=== PATIENT | female | born 1950 | race Caucasian/White ===

== ENCOUNTER 2016-09-16 10:10 | Inpatient (IN) | payer OTHER ==
[2016-08-15 14:59] VITALS: BMI 29.0
--- NOTE | 2016-08-15 15:37 | PAT Medication Instructions ---
Service Date Aug 15, 2016. Current Home Medication List Aspirin (Aspirin Ec), 81 MG PO QAM Calcium Carbonate-Vitamin D (Calcium), 1 TAB PO BID Diclofenac (Voltaren), 50 MG PO BID Duloxetine HCl (Cymbalta), 1 CAP PO HS Lorazepam (Ativan), 0.5 MG PO PRN Naproxen (Aleve), 440 MG PO PRN Omeprazole (Prilosec), 20 MG PO PRN Medication Instructions For Your Scheduled Surgery - Check with surgeon for instructions: Diclofenac (Voltaren), 50 MG PO BID Naproxen (Aleve), 440 MG PO PRN - Hold the following medications the morning of surgery: Calcium Carbonate-Vitamin D (Calcium), 1 TAB PO BID - Take the following medications the morning of surgery with a sip of water: Omeprazole (Prilosec), 20 MG PO PRN Lorazepam (Ativan), 0.5 MG PO PRN Aspirin (Aspirin Ec), 81 MG PO QAM (okay to continue per surgeon) - Take the following medications as scheduled the night before surgery: Calcium Carbonate-Vitamin D (Calcium), 1 TAB PO BID Lorazepam (Ativan), 0.5 MG PO PRN Duloxetine HCl (Cymbalta), 1 CAP PO HS If you have any questions please call us at [phone] (Jyoti Reagan PA-C ) or [phone] or [phone]
[2016-08-15 16:04] LABS: BASO % 0.4 %; BASO ABS # 0.03 K/uL (0-0.2); COMPLETE YES; EOS % 1.6 %; HEMATOCRIT 36.9 % (37-47); IG% 0.3 %; LYMPH % 26.3 %; LYMPH ABS # 1.77 K/uL (1.2-3.4); MEAN CELL VOLUME 88.7 fL (80-100); MEAN CORPUSCULAR HGB CONC 33.9 g/dl (32-36); MEAN PLATELET VOLUME 9.2 fL (7.4-10.4); MONO % 9.2 %; NEUT % 62.2 %; PLATELET COUNT 313 K/uL (130-400); RED BLOOD COUNT 4.16 M/uL (4.2-5.4); WHITE BLOOD COUNT 6.74 K/uL (4.8-10.8)
[2016-08-15 16:20] LABS: INR 0.9 (0.9-1.1); PARTIAL THROMBOPLASTIN RATIO 1.1; PROTHROMBIN TIME (PATIENT) 10.1 SECONDS (9.0-12.0)
[2016-08-15 19:05] LABS: BUN/CREATININE RATIO 20.5 (10-20); POTASSIUM 3.7 mmol/L (3.5-5.1)
[2016-08-15 19:24] LABS: CALCIUM 9.3 mg/dl (8.5-10.1)
--- NOTE | 2016-09-04 18:40 | HISTORY & PHYSICAL EXAMINATION ---
DATE OF ADMISSION: 09/16/2016 NOTICE TO RECEIVING DEMOCRAT/AGENCY This information is strictly Confidential and protected under [place] law. [place] law prohibits you from making any further disclosure of this information unless further disclosure is expressly permitted by the written consent of the person to whom it pertains or is authorized by law. A general authorization for the release of medical or other information is not sufficient for this purpose. Hospital accepts no responsibility if the information is made available to any other person, INCLUDING THE PATIENT. CHIEF COMPLAINT: Left knee pain. HISTORY OF PRESENT ILLNESS: A 66-year-old female who presents for surgical treatment of her left knee. She has a several year history of left knee pain, discomfort and had her knee scoped by Dr. Hardwick back in February of 2015 at [facility]. Really never got any better after that. She continues to have pain and discomfort globally on her knee. It is increased with weight bearing. She has been through extensive therapy as well as oral medicines without much relief. We did provide her with an injection which gave her a limited amount of relief for a short period of time. She would now like to proceed with more definitive treatment. The pain is worse with weightbearing. Her knee also feels unstable. PAST MEDICAL HISTORY: 1. Heart murmur. 2. Anxiety/depression due to passing of her mother recently. 3. Arthritis. 4. Gastroesophageal reflux disease. 5. Kidney stones. PAST SURGICAL HISTORY: Include: 1. Hysterectomy. 2. Left knee scope February 24, 2015. ALLERGIES: LATEX AND DYE. CURRENT MEDICATIONS: 1. Diclofenac 50 mg twice. 2. duloxetine 30 mg a day. 3. Lorazepam p.r.n. 4. Aspirin 81 mg a day. SOCIAL HISTORY: A 67-year-old female patient from [place]. She is . One drink per week. Does not smoke. FAMILY HISTORY: Heart disease and colon cancer. REVIEW OF SYSTEMS: Negative for diabetes, neurologic problems, vascular problems, bleeding disorders. Denies any chest pain or shortness of breath. No evidence of DVT or PE. PHYSICAL EXAMINATION: GENERAL: Reveals a healthy pleasant, middle-aged female. Looks to be in good health. HEENT: Benign. NECK: Supple. No lymphadenopathy. LUNGS: Clear to auscultation. HEART: Has a regular rate and rhythm. ABDOMEN: Soft, nontender, nondistended. EXTREMITIES: Grossly neurovascularly intact except as follows: Examination of the left lower extremity reveals the patient walks with a slightly antalgic gait. She has got valgus alignment to her knee. With weightbearing, she goes into further valgus. Range of motion about 5 degrees short of full extension to 120 degrees of flexion. There is no instability. No pain with hip motion. She is neurologically intact. X-RAYS: X-rays of the left knee were reviewed. It shows advanced lateral compartment DJD. She has got complete loss of her lateral joint space. She has got a 50% loss of her medial cartilage. ASSESSMENT: A 66-year-old white female with a history of a knee arthroscopy done elsewhere with advanced tricompartmental DJD, most severe in the lateral compartment. Very temporary response to injection. She would like to have her knee fixed. PLAN: We are going to take her the operating room and do a left total knee replacement. The risks and benefits of this procedure were explained to the patient including but not limited to DVT, PE, , infection, neurological injury, vascular injury, bleeding problem, pain, limited range of motion, stiffness, failure to relieve symptoms, incomplete relief of symptoms, need for further surgery in the future, fracture, leg length inequality, nerve palsy, etc. The patient understands and desires to proceed. Informed consent was obtained. As far as discharge plans, she is planning to be discharged to home using [facility] home health program. I will see her back 2 weeks postop. I did talk to her about holding her diclofenac 10 days preop. We will likely use this postop to assist in pain control as well.
[~2016-09-16] VITALS: Ht 167.6 cm; Wt 81.4 kg
[~2016-09-16 10:10] MED LIST: ACETAMINOPHEN 500 MG TAB PO SCH; ASPI81TA28 PO; BUPIVACAINE 0.25% 30 ML VIAL ONE; BUPIVACAINE 0.5 % 5 MG/1 ML PF 10ML VIAL ONE; BUPIVACAINE LIPOSOME 266 MG, BUPIVACAINE/EPINEPHRINE INJ 50 ML, SODIUM CHLORIDE 0.9% PF... INFIL SCH; CALC-51 PO; CEFAZOLIN 2000 MG/60 ML D5W 60 ML IV SCH; CYM/30 PO; DICL50TA3 PO; FAMOTIDINE 20 MG TAB PO SCH; GABAPENTIN 300 MG CAP PO SCH; LACTATED RINGER'S 1000ML 500 ML IV ONE; LACTATED RINGER'S 1000ML IV SCH; LORA-741 PO; METOCLOPRAMIDE HCL 10 MG TAB PO SCH; NAPR1TAB9 PO; OXYCODONE HCL 10 MG TABCR (OXYCONTIN) PO SCH; PRLSR20 PO; SCOPOLAMINE 1.5 MG TDSY TD SCH; TRANEXAMIC ACID INJ 1,000 MG in SODIUM CHLORIDE 0.9% 100ML 100 ML IV SCH
[2016-09-16 10:56] VITALS: BP 127/86; PULSE 61; TEMP 36.8; Ht 167.6 cm; Wt 81.4 kg
[2016-09-16 11:01] VITALS: O2SAT 98
--- NOTE | 2016-09-16 11:35 | History & Physical Bridge Note ---
H&P Re-Evaluation Bridge Note: I have examined the patient, reviewed the History & Physical and in the interval since the performance of the History & Physical I have noted the following changes of clinical significance: No changes noted
[2016-09-16] MEDS ORDERED: MIDAZOLAM HCL 1 MG/ML 2ML VIAL ONE (12:43)
[2016-09-16] MEDS ORDERED: FENTANYL CITRATE INJ 50 MCG/1 ML 2 ML VIAL ONE (12:43)
[2016-09-16] MEDS ORDERED: PROPOFOL IV EMULSION 10 MG/ML 20 ML VIAL IV ONE (14:14)
[2016-09-16] MEDS ORDERED: ATROPINE SULFATE 0.1 MG/ML 5ML SYR IV PRN (14:45)
[2016-09-16] MEDS ORDERED: EpHEDrine SULFATE INJ 50 MG/ML AMP IV PRN (14:45)
[2016-09-16] MEDS ORDERED: BACITRACIN 50000 UNIT VIAL IR ONE (15:37)
--- NOTE | 2016-09-16 15:40 | [facility] Post Operative Brief Note ---
Immediate Operative Summary Operative Date Sep 16, 2016. Pre-Operative Diagnosis Left knee degenerative joint disease Post-Operative Diagnosis Left knee degenerative joint disease Procedure(s) Performed Left total knee arthroplasty Surgeon Dr. Jason Jimenez Full Time Paramedic Surgeon(s) Tulio Veloz PA-C Estimated Blood Loss 50 cc Findings Left Knee DJD Fluids (cc crystalloids) 1600 cc Specimens A. Left knee bone and tissue Drains None Anesthesia Spinal Complication(s) None Disposition Recovery Room / PACU
[2016-09-16] MEDS ORDERED: ONDANSETRON INJ 2 MG/ML 2 ML VIAL IV PRN (15:45)
[2016-09-16] MEDS ORDERED: SILVER SULFADIAZINE 1% CR 50 GM JAR EXT PRN (15:45)
[2016-09-16] MEDS ORDERED: BISACODYL 10 MG SUPP PR PRN (15:45)
[2016-09-16] MEDS ORDERED: METOCLOPRAMIDE HCL INJ 5 MG/ML 2 ML VIAL IV PRN (15:45)
[2016-09-16] MEDS ORDERED: LORAZEPAM 0.5 MG TAB PO PRN (15:45)
[2016-09-16] MEDS ORDERED: ALUMINUM/MAGNESIUM/SIMETH (MAALOX MAX) 30 ML UDC PO PRN (15:45)
[2016-09-16] MEDS ORDERED: NON-FORMULARY MEDICATION (Omeprazole (Prilosec) 20 MG) PO SCH (15:45)
[2016-09-16] MEDS ORDERED: MAGNESIUM HYDROXIDE SUSP 30 ML UDC PO PRN (15:45)
[2016-09-16] MEDS ORDERED: MoRPHine SULFATE 2 MG/ML CARP IV PRN (15:45)
[2016-09-16] MEDS ORDERED: ZOLPIDEM TARTRATE 5 MG TAB PO PRN (15:45)
[2016-09-16] MEDS ORDERED: DiphenhydrAMINE HCL 50 MG/ML VIAL IV PRN (15:45)
[2016-09-16] MEDS: CHECK SCOPOLAMINE PATCH PLACEMENT SCH (16:00)
--- NOTE | 2016-09-16 16:09 | Anesthesiology Progress Note ---
Anesthesia Post Op Note Date & Time Sep 16, 2016 at 16:09 Vital Signs Pain Intensity: 0 Vital Signs Past 12 Hours Date Time Temp Pulse Resp B/P Pulse Ox O2 Delivery O2 Flow Rate FiO2 09/16/16 16:05 51 18 114/76 97 Nasal Cannula 2 09/16/16 15:55 56 21 114/60 98 Nasal Cannula 2 09/16/16 15:47 37.2 68 16 113/84 95 Nasal Cannula 2 09/16/16 11:01 98 Room Air 09/16/16 10:56 36.8 61 18 127/86 Notes Mental Status: alert / awake / arousable, participated in evaluation Pt Amnestic to Procedure: Yes Nausea / Vomiting: adequately controlled Pain: adequately controlled Airway Patency, RR, SpO2: stable & adequate BP & HR: stable & adequate Hydration State: stable & adequate Anesthetic Complications: no major complications apparent
--- NOTE | 2016-09-16 16:11 | OPERATIVE REPORT ---
DATE OF OPERATION: 09/16/2016 PREOPERATIVE DIAGNOSIS: Left knee degenerative joint disease. POSTOPERATIVE DIAGNOSIS: Same. PROCEDURE PERFORMED: Left cemented posterior stabilized total knee arthroplasty. SURGEON: Dr. Jason Jimenez. AGRICULTURAL SERVICES DIRECTOR: Tulio Veloz PA-C. COMPLICATIONS: None. ESTIMATED BLOOD LOSS: 50 mL. FLUID REPLACEMENT: 1600 mL crystalloid fluid replacement. ANESTHESIA: Spinal with adductor canal block. DRAINS: None. SPECIMENS: Left knee sent for pathology. TOURNIQUET TIME: 55 minutes at 300 mmHg. OPERATIVE INDICATIONS: The patient is a 66-year-old female who has had a several year history of increasing left knee pain and discomfort. She had her knee scope done elsewhere about a year and half ago which did not help her at all and things just progressed since that time. She has been through extensive conservative treatment. X-rays revealed advanced lateral compartment DJD. The patient elected to proceed with operative treatment. OPERATIVE FINDINGS: Operative findings revealed advanced left knee DJD. She had grade 4 [id number] disease in all 3 compartments, most severe in the lateral side. She had eburnation of the lateral femoral condyle and lateral tibial plateau. She did have pretty extensive grade 4 change of the patella was well. Moderate size joint effusion. She had a valgus aligned knee. OPERATIVE IMPLANTS: Operative implants consisted of: 1. Biomet Vanguard size 65 left posterior stabilized femoral component. 2. Biomet size 71 tibial tray. 3. A 14 mm posterior stabilized polyethylene insert. 4. A 31 x 8 all poly patella. OPERATIVE PROCEDURE: The patient taken to the operating room, identified and placed on the operating table in supine position. All contact areas were appropriately padded. IV antibiotics were provided by anesthesia team. A spinal anesthetic had been implemented in the holding area along with an adductor canal block. A Johnson catheter was placed in sterile fashion. Left thigh tourniquet was then placed and left lower extremity was then prepped and draped in the usual sterile fashion. The left leg was elevated and exsanguinated with Esmarch and tourniquet was placed at 300 mmHg. An anterior approach of the left knee was then performed through a longitudinal incision centered over the patella. Sharp dissection was carried down through the subcutaneous tissues down to the level of the extensor mechanism. A medial parapatellar arthrotomy incision was made. Some subperiosteal dissection was carried out medially. The fat pad was resected from beneath the patellar tendon. The lateral patellofemoral ligament was released. The patella was everted and knee was flexed. The osteophytes were taken off the distal femur. The ACL and PCL were then released from the distal femur and the tibia subluxated anteriorly. The external tibial alignment jig was then placed in the anterior face of the tibia and adjusted 12 mm medially. The proximal tibial cut was made to remove about 2-3 mm of bone from the medial side. The tibia was sized to a size 71. Attention was then drawn to the femur. The distal femur was entered with a sharp drill bit. Intramedullary canal was suctioned. A left 5 degree valgus cutting guide was then placed and distal femoral cutting block was pinned in place. Distal femoral cut was made to take an additional 3 mm of bone off the distal femur. The knee was brought out into extension. I did do a little bit of release of the IT band and the posterolateral capsule to equalize the extension space. Great care was taken to protect the peroneal nerve at all times. The knee was then flexed. The femur was sized to a size 65. We did downsize this slightly. The AP cutting block was pinned parallel to the epicondylar axis, which was 6 degrees of external rotation. The anterior cut, anterior chamfer, posterior cut, and posterior chamfer cuts were made. Box cutting guide was placed and adjusted slightly lateral and the box cut was made. The knee was flexed. The remnants of the medial and lateral menisci were excised. The osteophytes were taken off the posterior aspect of the femur. Trial femoral component was placed. Tibial tray was pinned in maximum external rotation and drill and stem punch were used to create defect in proximal tibia for the tibial tray. The knee was then trialed and the 14 mm insert fit most appropriately. Of note, the patient had a recurvatum deformity before surgery and we did try and tighten up her extension space slightly to decrease the likelihood of this recurring. Attention was then drawn to the patella. The patella was cleaned of all soft tissues. Patella thickness measured 20 mm in thickness and was cut down to 13. It was sized to a size 31 patella. Lug holes were drilled for the 31 patella. Lateral osteophyte was removed. Patella button was placed. Knee was taken through range of motion and the patella tracked nicely with no thumbs test. Attention was then drawn toward placement of the permanent components. All trial components were removed. A bone plug was placed in the distal femur to limit blood loss. A double batch of Palacos G cement was mixed. A left size 65 posterior stabilized femoral component, size 71 tibial tray, a 14 mm posterior stabilized polyethylene insert, and a 31 x 8 all poly patella were then cemented in place. Knee was brought out into full extension until cement hardened. A final cement check was then performed. Pericapsular tissues were injected with a total of 100 mL of a combination of 20 mL of Exparel, 30 mL of normal saline, 50 mL of 0.25% Marcaine with epinephrine. The patient did receive 1 gram of tranexamic acid. The tourniquet was let down for a tourniquet time of 55 minutes. Hemostasis was assured with use of electrocautery. The extensor mechanism was then closed with a combination of #1 PDS suture and #1 Vicryl suture in a [id number] fashion. Extensor mechanism was checked and found to be intact. The subcutaneous tissues were then closed with 2-0 Dexon suture in a buried interrupted fashion. Skin was closed skin julissa. Leg was then cleaned and dried and a sterile dressing with Xeroform, 4 x 4, sterile cast padding and Aleksandr bandage were applied. The patient then transferred to the recovery room in stable condition. The patient tolerated procedure well with no complications. All needle and sponge counts were correct at the end of the operation. I attest to the content of the Intraoperative Record and any orders documented therein. Any exceptio ns are noted below.
[2016-09-16 16:25] VITALS: BP 123/77; PULSE 48; TEMP 36.5; O2SAT 98
--- NOTE | 2016-09-16 16:28 | DIAGNOSTIC IMAGING REPORT ---
LEFT KNEE 2 VIEWS History: Left total knee arthroplasty. Degenerative arthritis. Postop. FINDINGS: The patient is status post a left total knee arthroplasty. The hardware is intact. No fracture or dislocation. Skin julissa are in place. IMPRESSION: Left total knee arthroplasty. No evidence for hardware complication. Electronically signed by: Hardeep Mcgowan M.D. 09/16/2016 4:26 PM Dictated Date/Time: 09/16/2016 4:20 PM
[2016-09-16 17:02] VITALS: BP 146/81; PULSE 47; TEMP 36.7; O2SAT 98
[2016-09-16] MEDS: D5W AND 1/2NSS + 20MEQ KCL 1,000 ML IV SCH (17:41)
[2016-09-16] MEDS: FERROUS GLUCONATE 324 MG TAB PO SCH (17:41)
[2016-09-16] MEDS: KETOROLAC TROMETHAMINE 15 MG/ML VIAL IV. SCH (17:43)
[2016-09-16 19:31] VITALS: BP 135/82; PULSE 50; TEMP 36.4; O2SAT 98
[2016-09-16] MEDS: OXYCODONE HCL IR 5 MG TAB (IMMEDIATE RELEASE) PO PRN (19:36)
[2016-09-16] MEDS: TAPENTADOL ER 50 MG TABCR PO SCH (21:31)
[2016-09-16] MEDS: DULOXETINE (CYMBALTA) 30 MG CAP PO SCH (21:32)
[2016-09-16] MEDS: DOCUSATE SODIUM 100 MG CAP PO SCH (21:32)
[2016-09-16] MEDS: CALCIUM 600MG + VIT D 400 IU TAB PO SCH (21:32)
[2016-09-16] MEDS: ASPIRIN 325 MG ECTAB PO SCH (21:32)
[2016-09-16] MEDS ORDERED: TRANEXAMIC ACID INJ 1,000 MG in SODIUM CHLORIDE 0.9% 100ML 100 ML IV SCH (21:45)
[2016-09-16] MEDS: CEFAZOLIN IV 2,000 MG in DEXTROSE 5% 50ML 50 ML IV SCH (22:01)
[2016-09-16] MEDS: ACETAMINOPHEN 500 MG TAB PO SCH (22:01)
[2016-09-16 23:06] VITALS: BP 125/75; PULSE 57; TEMP 36.5; O2SAT 97
[2016-09-17] MEDS: CHECK SCOPOLAMINE PATCH PLACEMENT SCH ×3 (00:02→16:26)
[2016-09-17] MEDS: KETOROLAC TROMETHAMINE 15 MG/ML VIAL IV. SCH ×4 (00:03→17:47)
[2016-09-17 03:36] VITALS: BP 104/65; PULSE 62; TEMP 36.7; O2SAT 92
[2016-09-17] MEDS: D5W AND 1/2NSS + 20MEQ KCL 1,000 ML IV SCH ×2 (03:54→12:46)
[2016-09-17 06:26] LABS: HEMATOCRIT 31.6 % (37-47); MEAN CELL VOLUME 89.5 fL (80-100); MEAN CORPUSCULAR HGB CONC 33.5 g/dl (32-36); MEAN PLATELET VOLUME 9.1 fL (7.4-10.4); PLATELET COUNT 249 K/uL (130-400); RED BLOOD COUNT 3.53 M/uL (4.2-5.4); WHITE BLOOD COUNT 8.07 K/uL (4.8-10.8)
[2016-09-17] MEDS: CEFAZOLIN IV 2,000 MG in DEXTROSE 5% 50ML 50 ML IV SCH (06:30)
[2016-09-17] MEDS: ACETAMINOPHEN 500 MG TAB PO SCH ×3 (06:31→21:55)
[2016-09-17 06:54] LABS: BUN/CREATININE RATIO 24.7 (10-20); CALCIUM 8.3 mg/dl (8.5-10.1); CREATININE 0.63 mg/dl (0.60-1.20)
[2016-09-17 06:59] VITALS: BP 112/70; PULSE 57; TEMP 36.9; O2SAT 95
[2016-09-17] MEDS: PANTOprazole SOD 40 MG TAB PO SCH (08:59)
[2016-09-17] MEDS: CALCIUM 600MG + VIT D 400 IU TAB PO SCH ×2 (08:59→21:55)
[2016-09-17] MEDS: DOCUSATE SODIUM 100 MG CAP PO SCH ×2 (08:59→21:55)
[2016-09-17] MEDS: FERROUS GLUCONATE 324 MG TAB PO SCH ×3 (08:59→18:04)
[2016-09-17] MEDS: MULTIVITAMIN TAB PO SCH (08:59)
[2016-09-17] MEDS: ASPIRIN 325 MG ECTAB PO SCH ×2 (08:59→21:55)
[2016-09-17] MEDS: TAPENTADOL ER 50 MG TABCR PO SCH ×2 (09:00→21:29)
--- NOTE | 2016-09-17 10:31 | Anesthesiology Progress Note ---
Anesthesia Post Op Note Date & Time Sep 17, 2016 at 10:30 Vital Signs Pain Intensity: 7.0 Vital Signs Past 12 Hours Date Time Temp Pulse Resp B/P Pulse Ox O2 Delivery O2 Flow Rate FiO2 09/17/16 08:11 Room Air 09/17/16 06:59 36.9 57 16 112/70 95 Room Air 09/17/16 03:36 36.7 62 16 104/65 92 Room Air 09/16/16 23:55 Room Air 09/16/16 23:06 36.5 57 16 125/75 97 Room Air Notes Mental Status: alert / awake / arousable, participated in evaluation Pt Amnestic to Procedure: Yes Nausea / Vomiting: adequately controlled Pain: adequately controlled Airway Patency, RR, SpO2: stable & adequate BP & HR: stable & adequate Hydration State: stable & adequate Neuraxial Anesthesia: sensory block resolved Anesthetic Complications: no major complications apparent
[2016-09-17] MEDS: OXYCODONE HCL IR 5 MG TAB (IMMEDIATE RELEASE) PO PRN (10:51)
[2016-09-17 10:53] VITALS: BP 132/85; PULSE 57; TEMP 36.3; O2SAT 100
--- NOTE | 2016-09-17 14:47 | PROGRESS NOTE ---
DATE: 09/17/2016 DATE: 09/17/2016. SUBJECTIVE: A 66-year-old white female postop day 1 from a left knee replacement. She is doing pretty well. Pretty painful after therapy. No chest pain or shortness of breath. Not feeling dizzy or lightheaded. OBJECTIVE: VITAL SIGNS: Temperature is 36.3. Vital signs stable. PHYSICAL EXAMINATION: GENERAL: Reveals a healthy pleasant, middle-aged female. She is lying in bed and looks pretty comfortable. LUNGS: Clear to auscultation. HEART: Regular rate and rhythm. ABDOMEN: Soft, nontender, nondistended. EXTREMITY EXAMINATION: Grossly neurovascularly intact except as follows: Examination of the left lower extremity reveals the leg to be well aligned. Dressing is clean, dry and intact. She can dorsiflex and plantarflex her foot appropriately. She is neurologically intact. LABORATORY DATA: Hemoglobin 10.6. Hematocrit 31.6. Electrolytes are stable. ASSESSMENT: A 66-year-old white female postop day 1 from a left knee replacement, doing pretty well. Painful after therapy which is to be expected. She is neurologically intact. PLAN: 1. DVT prophylaxis including thigh-high TEDs, SCDs, and aspirin twice a day. 2. PT/OT. Weightbearing as tolerated. Left total knee protocol. 3. Pain control. Doing well with current pain regimen. 4. Disposition: Plan to discharge to home with some home health once adequately recovered.
[2016-09-17 15:38] VITALS: BP 159/81; PULSE 65; TEMP 36.9; O2SAT 97
[2016-09-17] MEDS ORDERED: ACET-1138 PO (20:16)
[2016-09-17] MEDS ORDERED: RXC5 PO (20:16)
[2016-09-17] MEDS ORDERED: ASPEC325 PO (20:16)
[2016-09-17] MEDS ORDERED: FRRG PO (20:16)
--- NOTE | 2016-09-17 20:19 | Discharge Instructions ---
Discharge Instructions Admission Reason for Admission: Left Knee Osteoarthritis Discharge Discharge Diagnosis / Problem: Left Knee Replacement Discharge Goals Goal(s): Decrease discomfort, Improve function, Increase independence, Improve disease control, Therapeutic intervention Activity Recommendations Activity Limitations: per Instructions/Follow-up section Weightbearing Status: Left weightbearing . Instructions / Follow-Up Instructions / Follow-Up ACTIVITY RECOMMENDATIONS: Physical Therapy: * You will go to physical therapy three times each week for four to six weeks after your surgery in order to regain your knee range of motion and to retrain your knee to work properly. * It is just as important to make sure you are getting your knee perfectly straight as it is to regain your knee bend. * Taking a pain pill an hour before therapy can help you have a more productive and comfortable therapy session. Home Exercise: * You were shown a series of exercises (heel props, heel slides, etc.) in the hospital. Do these exercises three to four times each day including the exercises you were shown in physical therapy. Walking: * Get up and walk several times each day. For the first four weeks, try not to stand or walk for more than one hour at a time. If you do stand or walk for more than one hour, you will not hurt anything, but your knee and leg will likely swell. * As you feel comfortable, you may change from the walker or crutches to a cane and then to independent walking. MEDICATIONS: New Medicine: * You will likely be taking one or more of these medications: 1. Percocet - A quick and shorter-acting pain medication. Take one to two tablets every four to six hours to lessen your pain. 2. Iron Sulfate - Take three times each day for the month after surgery to help you replace the blood lost during surgery. 3. Aspirin - Thins your blood to lessen the chance of forming a blood clot. * The most common side effects of pain medicine and iron are nausea and constipation. If nausea or constipation is too much of a problem or if you have any questions about your new medicines or doses, call [facility] at . We will try to help you manage these issues. VERY IMPORTANT TO READ AND REVIEW" Pain: * The immediate post-operative period after knee replacement surgery is often quite painful. * You are given a prescription for pain medicine. You should take it, as directed, when you need it, especially before physical therapy and before going to bed. Pain that interferes with sleep is very common and can last several months. * You will likely need pain medicine for the first four to six weeks. It will not stop all of the pain. The pain will lessen and as you feel better, you may change to milder pain medicine such as Tylenol. * The most common side effects of pain medicine are nausea and constipation, so don't take more than you need. SPECIAL CARE INSTRUCTIONS: TEDs/Elastic Stockings: * The white elastic stockings help limit swelling and prevent blood clots from forming in your legs. The more you wear them, the more they work. * Wear them for six weeks after knee replacement surgery and four weeks after partial knee replacement. Prevention of Infection: * Take antibiotics one hour before any dental cleaning, dental work, urological procedure, gastrointestinal procedure or any invasive surgery in order to prevent your new joint from getting infected. * You may get the antibiotics from the doctor performing the procedure or you may call our office at before and we will call in a prescription to the pharmacy of your choice. Things to Watch For: * Drainage from the incision site that occurs more than one week after your surgery. * Severely increased knee/leg pain or swelling. * Increased redness at the incision site. * Fever above 102 degrees Fahrenheit. * Unusual chest pain or shortness of breath. * Unusual pain or burning with urination. Call [facility] at with any of the above problems or if you have any questions about your medicines or recovery. FOLLOW UP VISIT: Make an appointment to see your doctor for approximately two weeks after surgery for a progress check and staple removal by calling the office at . Current Hospital Diet Patient's current hospital diet: Regular Diet Discharge Diet Recommended Diet: Regular Diet Procedures Procedures Performed: Left total knee arthroplasty Pending Studies Studies pending at discharge: no Medical Emergencies . Who to Call and When: Medical Emergencies: If at any time you feel your situation is an emergency, please call [phone] immediately. . Non-Emergent Contact Non-Emergency issues call your: Surgeon . "Provider Documentation" section prepared by Jason Jimenez. VTE Core Measure Inpt VTE Proph given/why not?: Other Anticoagulation, T.E.D. Stockings, SCD's
[2016-09-17] MEDS: DULOXETINE (CYMBALTA) 30 MG CAP PO SCH (21:29)
[2016-09-17 23:03] VITALS: BP 137/84; PULSE 78; TEMP 36.8; O2SAT 93
[2016-09-18] MEDS: CHECK SCOPOLAMINE PATCH PLACEMENT SCH (00:23)
[2016-09-18] MEDS: OXYCODONE HCL IR 5 MG TAB (IMMEDIATE RELEASE) PO PRN ×3 (00:23→10:40)
[2016-09-18] MEDS: KETOROLAC TROMETHAMINE 15 MG/ML VIAL IV. SCH ×3 (00:23→11:30)
[2016-09-18] MEDS: ACETAMINOPHEN 500 MG TAB PO SCH (06:04)
[2016-09-18 07:11] VITALS: BP 147/84; PULSE 75; TEMP 36.8; O2SAT 94
--- NOTE | 2016-09-18 07:44 | PROGRESS NOTE ---
DATE: 09/18/2016 DATE: 09/18/2016. SUBJECTIVE: A 66-year-old white female postop day 2 from left knee replacement. She is doing pretty well. She is having a significant amount of pain, but seems to respond to the meds. No chest pain or shortness of breath. Not feeling dizzy or lightheaded. OBJECTIVE: VITAL SIGNS: Temperature is 36.8. Vital signs stable. PHYSICAL EXAMINATION: GENERAL: Reveals a healthy pleasant, middle-aged female lying in bed. I had to awake her this morning. LUNGS: Clear to auscultation. HEART: Regular rate and rhythm. ABDOMEN: Soft, nontender, nondistended. EXTREMITY EXAMINATION: Grossly neurovascularly intact except as follows: Examination of the left lower extremity reveals the dressing to be clean, dry and intact. Leg is well aligned. She can dorsiflex and plantarflex her foot appropriately. She is neurologically intact. ASSESSMENT: A 66-year-old white female postop day 2 from left knee replacement, doing pretty well. She is having some pain but not out of the ordinary. Doing okay with the pain pills. PLAN: 1. DVT prophylaxis including thigh-high TEDs, SCDs, and aspirin twice a day. 2. PT/OT. Weightbearing as tolerated. Left total knee protocol. 3. Pain control. Doing reasonably well with current pain regimen. 4. Disposition. Plan to discharge to home with home health after rehab.
[2016-09-18] MEDS: FERROUS GLUCONATE 324 MG TAB PO SCH (08:59)
[2016-09-18] MEDS: ASPIRIN 325 MG ECTAB PO SCH (09:00)
[2016-09-18] MEDS: PANTOprazole SOD 40 MG TAB PO SCH (09:00)
[2016-09-18] MEDS: DOCUSATE SODIUM 100 MG CAP PO SCH (09:00)
[2016-09-18] MEDS: MULTIVITAMIN TAB PO SCH (09:01)
[2016-09-18] MEDS: CALCIUM 600MG + VIT D 400 IU TAB PO SCH (09:01)
[2016-09-18] MEDS: TAPENTADOL ER 50 MG TABCR PO SCH (09:04)
[2016-09-18 09:30] VITALS: BP 147/84; PULSE 75; TEMP 36.8; O2SAT 94
--- NOTE | 2016-09-25 15:07 | DISCHARGE SUMMARY ---
ADMITTING PHYSICIAN AND SURGEON: Dr. Jimenez. ADMITTING DIAGNOSIS: Left knee degenerative joint disease. SURGERY PERFORMED: Left total knee arthroplasty. SECONDARY DIAGNOSES: Include heart murmur, anxiety, depression, arthritis, gastroesophageal reflux disease, kidney stones. HISTORY AND PHYSICAL EXAMINATION: Well documented in the patient's chart. HOSPITAL COURSE: The patient was admitted on 09/16/2016 underwent total knee arthroplasty, tolerated the procedure well. There were no complications. She was transferred to the PACU postoperatively and later to the orthopedic floor for further care. She was given Ancef for antibiotic prophylaxis, KAY stockings, SCDs and aspirin for DVT prophylaxis. Hemoglobin, hematocrit and vital signs were monitored during her hospital stay and remained stable. She developed some mild postoperative anemia with a hemoglobin of 10.6, but not require blood transfusions. There were no complications. By postoperative day 2, she was tolerating a general diet. Pain was controlled with oral pain medicine. She was participating in physical therapy and had no signs or symptoms of deep vein thrombosis. On postop day 2, she was discharged home in good condition, set up with home health services. She was given printed discharge instructions including prescriptions for extra strength Tylenol, aspirin 325 mg b.i.d., iron supplement and oxycodone. Continue home medicines with the exception of her home dose of aspirin which was changed. Continue physical therapy, weightbearing as tolerated. KAY stockings and follow up in 10-12 days or sooner if there are problems or concerns.
== END 2016-09-18 11:49 | disposition home health service (06) | DRG 470 ==
LOC: ENRESERVDT → ENRESERVTM → C.ACU 10:10 → C.3E 11:30
PROVIDERS: ADMIT Orthopaedic Surgery Sports Medicine; ATTEND Orthopaedic Surgery Sports Medicine
PROC: 0SRD0J9 Replacement of Left Knee Joint with Synthetic Substitute, Cemented, Open Approach (ICD-10-PCS; principal; 2016-09-16 12:30)
DX: M17.12 Unilateral primary osteoarthritis, left knee (principal); M21.062 Valgus deformity, not elsewhere classified, left knee; K21.9 Gastro-esophageal reflux disease without esophagitis; M81.0 Age-related osteoporosis without current pathological fracture; F32.9 Major depressive disorder, single episode, unspecified; F41.9 Anxiety disorder, unspecified; Z79.1 Long term (current) use of non-steroidal anti-inflammatories (NSAID); Z79.82 Long term (current) use of aspirin; Z79.899 Other long term (current) drug therapy